=== PATIENT | male | born 1985 | race Hispanic/Latino ===

== ENCOUNTER 2018-11-01 17:23 | Emergency (ER) | payer SELFPAY ==
[2018-11-01 17:31] VITALS: RESP 16; O2SAT 97; BMI 26.1
--- NOTE | 2018-11-01 18:30 | ED PDOC ---
HPI: Chest Pain Time Seen by Provider: 11/01/18 17:43 Chief Complaint (Nursing): Chest Pain Chief Complaint (Provider): Chest Pain History Per: Patient Additional Complaint(s): Patient is a 33 year old male with no past medical history, who presents to the emergency department complaining of having chest pain that started on Wednesday as a slow onset. He states the pain has been consistent since and is worse with certain movements, especially when he uses abdominal and chest muscles. Patient denies taking any medication for the pain. He denies any shortness of breath, but has been having cough and cold since Wednesday and Wednesday. Patient denies any sudden pain with cough. He further denies any fever, dyspnea on exertion, nausea, vomiting, diarrhea, or constipation. PMD: Andres Past Medical History Reviewed: Historical Data, Nursing Documentation, Vital Signs Vital Signs: Last Vital Signs Temp 98.6 F 11/01/18 17:30 Pulse 90 11/01/18 17:30 Resp 16 11/01/18 17:30 BP 146/70 11/01/18 17:30 Pulse Ox 97 11/01/18 17:30 Primary Care Provider: DoctorDrake - Medical History PMH: No Chronic Diseases - Surgical History Surgical History: No Surg Hx - Family History Family History: States: No Known Family Hx - Social History Current smoker - smoking cessation education provided: Yes (1 pack a week ) Alcohol: < 2 Drinks/Day Drugs: Cannabis - Immunization History Hx Tetanus Toxoid Vaccination: Yes (updated 07/06/15) Hx Influenza Vaccination: No Hx Pneumococcal Vaccination: No - Home Medications Home Medications: Ambulatory Orders Medication Instructions Recorded Ibuprofen [Motrin Tab] 600 mg PO Q8 PRN #60 tab 11/01/18 - Allergies Allergies/Adverse Reactions: Allergies Allergy/AdvReac Type Severity Reaction Status Date / Time No Known Allergies Allergy Verified 11/01/18 17:33 Review of Systems ROS Statement: Except As Marked, All Systems Reviewed And Found Negative Constitutional: Positive for: Other ENT: Positive for: Other (abrasion to the right cheeck form playing with dog ) Cardiovascular: Positive for: Chest Pain Respiratory: Positive for: Cough. Negative for: Other (dyspnea on exertion) Gastrointestinal: Negative for: Nausea, Vomiting, Diarrhea, Constipation Physical Exam - Reviewed Nursing Documentation Reviewed: Yes Vital Signs Reviewed: Yes - Physical Exam Appears: Positive for: No Acute Distress Head Exam: Positive for: ATRAUMATIC, NORMOCEPHALIC Skin: Positive for: Warm, Dry. Negative for: Rash Eye Exam: Positive for: EOMI, PERRL ENT: Negative for: Pharyngeal Erythema, Tonsillar Exudate Neck: Positive for: Painless ROM, Supple Cardiovascular/Chest: Positive for: Regular Rate, Rhythm, Murmur. Negative for: Chest Non Tender (ttp to right anterior chest wall ), Other (crepitus; step offs) Respiratory: Positive for: Normal Breath Sounds. Negative for: Respiratory Distress Gastrointestinal/Abdominal: Positive for: Soft, Tenderness (RUQ and epigastric ttp ). Negative for: Mass, Distended, Guarding, Rebound Back: Positive for: Normal Inspection. Negative for: L CVA Tenderness, R CVA Tenderness, Decreased ROM Extremity: Positive for: Normal ROM. Negative for: Deformity Lymphatic: Negative for: Adenopathy Neurological/Psych: Positive for: Awake, Alert. Negative for: Motor/Sensory Deficits - ECG O2 Sat by Pulse Oximetry: 97 (RA) Pulse Ox Interpretation: Normal Medical Decision Making Medical Decision Making: Time: 1738 Impression: Right lower chest wall and right upper quadrant pain --Differential diagnosis includes but is not limited to PNA, pleural effusion, pneumothorax, rib strain or fracture, gall bladder disease, liver disease, quick creatitis Plan: --EKG --Ribs right and PA chest xray Chest xray unremarkable. Labs and US ordered, however pt declined labwork and prefers on ultrasound. Name: JEFERSON MCDANIEL Exam Date: Nov 01, 2018 8:07:24 PM EDT Modality Type: SD\US\NH Description: US - AB LIMITED (SINGLE ORGAN, QUADRANT) Gender: M Laterality: Not applicable : 81 Referring Physician: Ivette Hollingsworth EXAM: US Abdomen, Right Upper Quadrant. CLINICAL HISTORY: RUQ / epigastric TECHNIQUE: Right upper quadrant sonography performed with image documentation. COMPARISON: None provided. FINDINGS: LIVER: Within normal limits in size and echogenicity. No mass. GALLBLADDER: The gallbladder is partially contracted but otherwise appears within normal limits. No gallbladder wall thickening or pericholecystic fluid. COMMON BILE DUCT: Within normal limits in size. 2 mm. PANCREAS: The visualized pancreas appears within normal limits. The distal pancreas is obscured by bowel gas. RIGHT KIDNEY: Unremarkable. Normal renal contours. No renal mass or calculus. No hydronephro sis. IMPRESSION: No acute pathology. Electronically signed on Nov 01, 2018 8:43:37 PM EDT by: Chetan Edouard M.D., M.B.A., Certified By [employer] Trained MRI and CT Specialist [facility] pt findings. Advised motrin or tylenol as needed. Also cautioned about potential for early zoster and to return to ER or see doctor immediately if rash develops at site of pain for treatment. Scribe Attestation: Documented by Bruce Ordonez, acting as a scribe Silver Hollingsworth MD. Provider Scribe Attestation: All medical record entries made by the Scribe were at my direction and personally dictated by me. I have reviewed the chart and agree that the record accurately reflects my personal performance of the history, physical exam, medical decision making, and the department course for this patient. I have also personally directed, reviewed, and agree with the discharge instructions and disposition. Disposition - Clinical Impression Clinical Impression: Chest wall discomfort Counseled Patient/Family Regarding: Studies Performed, Diagnosis, Need For Followup - Disposition Referrals: [facility] [Outside] Disposition: Routine/Home Disposition Time: 21:00 Condition: STABLE Prescriptions: Ibuprofen [Motrin Tab] 600 mg PO Q8 PRN #60 tab PRN Reason: PAIN Instructions: Chest Pain That Is Not Caused by the Heart (DC), Bruised Rib (DC)
[2018-11-01 21:14] VITALS: BP 138/74; PULSE 81; TEMP 98.7
--- NOTE | 2018-11-02 08:55 | RAD ---
Date of service: 11/01/2018 PROCEDURE: Radiographs of the Chest and Right Ribs. HISTORY: RIGHT lower chest pain COMPARISON: None available. TECHNIQUE: Frontal radiograph of the chest and multiple oblique radiographs of the right ribs were obtained. 4 views obtained. FINDINGS: RIGHT RIBS: No fracture or focal lesion visualized. LUNGS: Clear. PLEURA: No pneumothorax or pleural fluid. CARDIOVASCULAR: Normal cardiac size. No pulmonary vascular congestion. No aortic atherosclerotic calcification present OTHER FINDINGS: There are orthopedic anchors over the anterior glenoid rim IMPRESSION: No right rib fracture. Other findings as above.
--- NOTE | 2018-11-02 10:34 | CARD ---
APPROVED REPORT Date of service: 11/01/2018 EKG Measurement Heart [id number] <Conclusion> Sinus rhythm with premature atrial complexes Rightward axis Incomplete right bundle branch block Borderline ECG
--- NOTE | 2018-11-02 12:36 | US ---
Date of service: 11/01/2018 HISTORY: RUQ and epigastric pain COMPARISON: None. TECHNIQUE: Grayscale imaging was performed. FINDINGS: LIVER: Measures 19.8 cm in length. Normal echogenicity of the liver parenchyma. No mass. No intrahepatic bile duct dilatation. GALLBLADDER: The gallbladder is contracted. COMMON BILE DUCT: Measures 3.8 mm. No stones. No dilatation. PANCREAS: Unremarkable as visualized. No mass. No ductal dilatation. RIGHT KIDNEY: Measures 12.4 cm in length. Normal echogenicity. No calculus, mass, or hydronephrosis. AORTA: No aneurysmal dilatation. IVC: Unremarkable. OTHER FINDINGS: None . IMPRESSION: Gallbladder is contracted. Findings could be related to nonfasting status or chronic cholecystitis. Clinical follow-up is advised. Mild hepatomegaly. A preliminary report was provided by [facility].
== END 2018-11-01 21:14 | disposition home or self-care (01) ==
LOC: H.ER 17:23
DX: R07.89 Other chest pain (principal); F17.210 Nicotine dependence, cigarettes, uncomplicated